=== PATIENT | female | born 1995 | race Caucasian/White ===

== ENCOUNTER 2018-11-30 20:16 | Observation (INO) ==
[2018-11-30 21:22] LABS: Basophils % 0.3 % (0.0-0.8); Eosinophils # 0.2 10*3/uL (0.0-0.87); Eosinophils % 1.6 % (0.00-10.9); Hematocrit 47.5 VOL% (35.7-47.0); Hemoglobin 15.7 GM/DL (12.0-16.0); Immature Granulocytes % 0.7 %; Lymphocytes # 4.1 10*3/uL (1.4-4.0); Lymphocytes % 27.9 % (21.3-54.2); Mean Corpuscular HGB Conc 33.1 GM/DL (32-36); Mean Corpuscular Volume 104.6 FL (87-102); Mean Platelet Volume 10.2 FL (9.6-12.0); Monocytes % 7.5 % (1.7-12.7); Platelet Count 262 T/CUMM (130-400); Red Blood Count 4.54 MC/CUMM (3.8-5.5); Red Cell Distribution Width 13.3 % (9.3-17.3); White Blood Count 14.8 T/CUMM (4-12)
[2018-11-30 21:29] LABS: Apearance,Urine CLOUDY (Clear); Bacteria,Urine Occasional /HPF (Few); Blood, Urine Negative (Negative); Glucose,Urine (UA) Negative (Negative); Ketones,Urine Negative (Negative); Mucus,Urine Many /LPF (Occasional); Nitrite,Urine Negative (Negative); Protein,Urine Negative; RBC,Urine 2 /HPF (0-4); Squamous Epithelial Cell,Urine Many /HPF (0-10); Urine Color Amber (Yellow); Urine Specific Gravity 1.029 (1.001-1.035); WBC,Urine 8 /HPF (0-6)
[2018-11-30 21:30] LABS: Bilirubin,Urine Small mg/dL (Negative)
[2018-11-30] MEDS ORDERED: HYDROmorphone 2 MG/1 ML VIAL ONE (21:37)
[2018-11-30] MEDS ORDERED: ONDANSETRON 4 MG/2 ML VIAL ONE (21:37)
[2018-11-30] MEDS ORDERED: ONDANSETRON 4 MG/2 ML VIAL IV STA (21:42)
[2018-11-30] MEDS ORDERED: LACTATED RINGERS 1,000 ML IV ONE (21:43)
[2018-11-30] MEDS ORDERED: HYDROmorphone 2 MG/1 ML VIAL IV STA (21:43)
[2018-11-30 21:51] LABS: Albumin 3.7 G/DL (3.4-5.0); Bilirubin,Total 0.5 MG/DL (0.2-1.0); Osmolality,Calculated 273.7 MOS/KG (273-304); Total Protein 7.9 G/DL (6.4-8.3)
[2018-11-30] MEDS ORDERED: ACETAMINOPHEN 325 MG TABLET PO PRN (23:36)
[2018-12-01] MEDS: HYDROmorphone 2 MG/1 ML VIAL IV PRN ×3 (00:49→11:47)
[2018-12-01] MEDS: ONDANSETRON 4 MG/2 ML VIAL IV PRN ×2 (00:49→18:54)
[2018-12-01] MEDS: LACTATED RINGERS 1,000 ML IV SCH ×5 (00:54→18:37)
[2018-12-01] MEDS: NICOTINE 14 MG/24 HR PATCH TRANSDERM SCH (02:22)
[2018-12-01 05:54] LABS: Basophils % 0.2 % (0.0-0.8); Eosinophils # 0.1 10*3/uL (0.0-0.87); Eosinophils % 1.7 % (0.00-10.9); Hematocrit 41.9 VOL% (35.7-47.0); Hemoglobin 13.5 GM/DL (12.0-16.0); Immature Granulocytes % 0.8 %; Immature Granulocytes Absolute 0.07 #; Lymphocytes # 2.7 10*3/uL (1.4-4.0); Lymphocytes % 32.1 % (21.3-54.2); Mean Corpuscular HGB Conc 32.2 GM/DL (32-36); Mean Corpuscular Volume 106.1 FL (87-102); Mean Platelet Volume 10.4 FL (9.6-12.0); Monocytes % 10.9 % (1.7-12.7); Neutrophils % 54.3 % (38.7-73.9); Platelet Count 214 T/CUMM (130-400); Red Blood Count 3.95 MC/CUMM (3.8-5.5); Red Cell Distribution Width 13.4 % (9.3-17.3); White Blood Count 8.3 T/CUMM (4-12)
[2018-12-01 06:16] LABS: Albumin 2.9 G/DL (3.4-5.0); Bilirubin,Total 1.1 MG/DL (0.2-1.0); Calcium 8.6 MG/DL (8.5-10.1); Osmolality,Calculated 277.4 MOS/KG (273-304); Total Protein 6.5 G/DL (6.4-8.3)
[2018-12-01] MEDS: PANTOPRAZOLE 40 MG TABLET PO SCH ×2 (07:51→09:23)
[2018-12-01] MEDS ORDERED: KETOROLAC 30 MG/1 ML VIAL IV SCH (09:30)
[2018-12-01] MEDS: LEVOFLOXACIN 750 MG TABLET PO SCH (10:49)
[2018-12-01] MEDS ORDERED: ALBUTEROL 2.5 MG/3 ML NEB RESP TX PRN (11:40)
[2018-12-01] MEDS: ALBUTEROL 2.5 MG/3 ML NEB RESP TX SCH ×2 (12:15→18:51)
[2018-12-01 12:53] LABS: Hepatitis B Core IgM Quant 0.07 Index; Hepatitis B Surface Ag Quant 0.13 Index; Hepatitis B Surface Ag Result Negative (Negative); Hepatitis C Virus Ab Quant < 0.02 Index; Hepatitis C Virus Ab Result Negative (Negative)
[2018-12-01] MEDS: BENZONATATE 100 MG CAPSULE PO SCH ×2 (16:06→20:27)
[2018-12-01] MEDS: KETOROLAC 30 MG/1 ML VIAL IV PRN (16:07)
[2018-12-02] MEDS: ALBUTEROL 2.5 MG/3 ML NEB RESP TX SCH ×3 (01:23→13:29)
[2018-12-02] MEDS: KETOROLAC 30 MG/1 ML VIAL IV PRN (01:58)
[2018-12-02] MEDS: LACTATED RINGERS 1,000 ML IV SCH (01:58)
[2018-12-02] MEDS: NICOTINE 14 MG/24 HR PATCH TRANSDERM SCH (01:58)
[2018-12-02] MEDS: HYDROmorphone 2 MG/1 ML VIAL IV PRN (04:44)
[2018-12-02 04:48] LABS: Basophils % 0.3 % (0.0-0.8); Eosinophils # 0.1 10*3/uL (0.0-0.87); Eosinophils % 1.5 % (0.00-10.9); Hematocrit 38.2 VOL% (35.7-47.0); Hemoglobin 12.8 GM/DL (12.0-16.0); Immature Granulocytes % 0.4 %; Immature Granulocytes Absolute 0.03 #; Lymphocytes # 1.9 10*3/uL (1.4-4.0); Lymphocytes % 23.6 % (21.3-54.2); Mean Corpuscular HGB Conc 33.5 GM/DL (32-36); Mean Corpuscular Volume 104.1 FL (87-102); Mean Platelet Volume 10.4 FL (9.6-12.0); Monocytes % 7.6 % (1.7-12.7); Neutrophils % 66.6 % (38.7-73.9); Platelet Count 186 T/CUMM (130-400); Red Blood Count 3.67 MC/CUMM (3.8-5.5); Red Cell Distribution Width 12.9 % (9.3-17.3); White Blood Count 7.9 T/CUMM (4-12)
[2018-12-02 05:15] LABS: Bilirubin,Total 1.2 MG/DL (0.2-1.0); Calcium 8.6 MG/DL (8.5-10.1); Osmolality,Calculated 270.8 MOS/KG (273-304); Total Protein 6.7 G/DL (6.4-8.3)
[2018-12-02] MEDS: BENZONATATE 100 MG CAPSULE PO SCH ×2 (08:26→14:08)
[2018-12-02] MEDS: PANTOPRAZOLE 40 MG TABLET PO SCH (08:26)
[2018-12-02] MEDS: LEVOFLOXACIN 750 MG TABLET PO SCH (11:13)
[2018-12-02 11:20] VITALS: BP 136/83
[2018-12-02] MEDS ORDERED: BISACODYL 5 MG TABLET PO PRN (14:12)
== END 2018-12-02 15:57 | disposition home or self-care (01) ==
LOC: N.ED 20:16 → N.EDINP 20:16 → N.3E 23:54
PROVIDERS: ADMIT Surgery; ATTEND Surgery